=== PATIENT | female | born 1955 | race Caucasian/White ===

== ENCOUNTER 2019-09-21 12:49 | Emergency (ER) | payer MEDICARE ==
[~2019-09-21] VITALS: Ht 167.6 cm; Wt 74.8 kg
[2019-09-21 12:56] VITALS: BP 139/76
[2019-09-21 14:07] LABS: BASOPHILS % (AUTO) 0.5 % (0.0-2.0); EOSINOPHILS # (AUTO) 0.1 K/uL (0-0.4); EOSINOPHILS % (AUTO) 1.1 % (0.0-4.0); HEMATOCRIT 33.5 % (36-48); HEMOGLOBIN 10.8 g/dL (12.0-16.0); LYMPHOCYTES # (AUTO) 1.5 K/uL (2.5-16.5); LYMPHOCYTES % (AUTO) 25.6 % (20.5-51.1); MEAN CORPUSCULAR HEMOGLOBIN 28 pg (27-31); MEAN CORPUSCULAR HGB CONC 32 g/dL (33-37); MEAN CORPUSCULAR VOLUME 86.4 fL (80-94); MONOCYTES # (AUTO) 0.4 K/uL (0.8-1.0); MONOCYTES % (AUTO) 7.8 % (1.7-9.3); NEUTROPHILS # (AUTO) 3.7 K/uL (1.8-7.7); PLATELET COUNT (AUTO) 181 K/uL (140-450); RED BLOOD CELL COUNT(AUTO) 3.88 MIL/uL (4.20-5.40); WHITE BLOOD COUNT (AUTO) 5.7 K/uL (4.8-10.8)
[2019-09-21 14:19] LABS: ALBUMIN 2.9 g/dL (3.4-5.0); ANION GAP 12.5 (8-16); CARBON DIOXIDE 24.5 mmol/L (21-32); TOTAL BILIRUBIN 0.8 mg/dL (0.0-1.0)
[2019-09-21 14:31] LABS: CREATININE 1.1 mg/dL (0.6-1.3)
[2019-09-21 15:59] LABS: APPEARANCE,URINE CLEAR (CLEAR); BILIRUBIN,URINE NEGATIVE (NEGATIVE); BLOOD, URINE NEGATIVE (NEGATIVE); COLOR,URINE OTHER (YELLOW); LEUKOCYTE ESTERASE ,URINE NEGATIVE (NEGATIVE); NITRITE, URINE NEGATIVE (NEGATIVE); UGLUCOSE NEGATIVE (NEGATIVE)
[2019-09-21 16:34] VITALS: BP 131/78
== END 2019-09-21 16:35 | disposition home or self-care (01) ==
LOC: MED 12:49
DX: M84.344A Stress fracture, right finger(s), initial encounter for fracture (principal); R55 Syncope and collapse; X58.XXXA Exposure to other specified factors, initial encounter; Y93.89 Activity, other specified; Y92.89 Other specified places as the place of occurrence of the external cause; Y99.8 Other external cause status; Z90.49 Acquired absence of other specified parts of digestive tract
CPT/HCPCS: 29130; 36415; 73140; 80053; 81003; 85025; 93005; 99284; Q0092; 99283

== ENCOUNTER 2020-04-11 10:52 | Emergency (ER) | payer MEDICARE, MEDICAID ==
[~2020-04-11] VITALS: Ht 167.6 cm; Wt 68.0 kg
--- NOTE | 2020-04-11 10:52 | NUR ---
PT BIBA BLS BY CARE AND PLACED IN BED 9. COVID PRECAUTIONS. PT TESTED POSITIVE 2 WEEKS AGO. PLACED IN ISOLATION FOR PRECAUTIONS.
[2020-04-11 11:00] VITALS: BP 118/62
--- NOTE | 2020-04-11 11:00 | NUR ---
64 Y/O F C/C ANXIETY, BIBA FROM [facility]. PER PT HAD ARGUMENT WITH AND MADE HER HAVE A PANIC ATTACK. PT PRESENTS IN NO RESPIRATORY DISTRESS, EUPNIC, VSS, AFEBRILE. NO COVID SYMPTOMS REPORTED, DENIES COUGH/SOB/FEVERS. BS IN FIELD 135. NKA. HX ASTHMA,ANXIETY. RX PROZAC. NO NVD. SIDE RAIL X2
--- NOTE | 2020-04-11 11:54 | NUR ---
DR OWEN AT BEDSIDE EXAMINING PT
--- NOTE | 2020-04-11 13:04 | NUR ---
[facility] [phone]
--- NOTE | 2020-04-11 13:04 | NUR ---
PT RESTING IN BED, SIDE RAIL X1
[2020-04-11 13:22] VITALS: BP 120/60
--- NOTE | 2020-04-11 13:23 | NUR ---
Patient discharged with v/s stable. Written and verbal after care instructions given and explained. Patient verbalized understanding. Ambulatory with steady gait. All questions addressed prior to discharge. Advised to follow up with PMD.
== END 2020-04-11 13:23 | disposition home or self-care (01) ==
LOC: MED 10:52
DX: F41.9 Anxiety disorder, unspecified (principal); F41.0 Panic disorder [episodic paroxysmal anxiety]; J45.909 Unspecified asthma, uncomplicated
CPT/HCPCS: 93005; 99283

== ENCOUNTER 2023-06-23 11:06 | Emergency (ER) | payer MEDICARE, MEDICAID ==
[~2023-06-23] VITALS: Ht 167.6 cm; Wt 63.0 kg
[2023-06-23 11:13] VITALS: BP 180/80; PULSE 75; RESP 16; TEMP 98.8; O2SAT 98
[2023-06-23 13:30] VITALS: BP 139/80; PULSE 75; RESP 16; TEMP 98; O2SAT 98
== END 2023-06-23 13:30 | disposition home or self-care (01) ==
LOC: MED 11:06
DX: S52.501A Unspecified fracture of the lower end of right radius, initial encounter for closed fracture (principal); R03.0 Elevated blood-pressure reading, without diagnosis of hypertension; W01.0XXA Fall on same level from slipping, tripping and stumbling without subsequent striking against object, initial encounter; Y93.01 Activity, walking, marching and hiking; Y92.89 Other specified places as the place of occurrence of the external cause; Y99.8 Other external cause status
CPT/HCPCS: 73110; 99283

== ENCOUNTER 2023-07-10 02:01 | Emergency (ER) | payer MEDICARE, MEDICAID ==
[~2023-07-10] VITALS: Ht 152.4 cm; Wt 65.8 kg
[2023-07-10 02:10] VITALS: BP 141/67; PULSE 68; RESP 17; TEMP 97.8; O2SAT 100
[2023-07-10] MEDS ORDERED: KETOROLAC 60 MG/2 ML VIAL IM ONE (02:55)
[2023-07-10] MEDS ORDERED: NAPR-54 PO (03:07)
[2023-07-10 03:25] VITALS: BP 138/72; PULSE 78; RESP 16; TEMP 97.8; O2SAT 100
== END 2023-07-10 03:25 | disposition home or self-care (01) ==
LOC: MED 02:01
DX: M40.202 Unspecified kyphosis, cervical region (principal); J45.909 Unspecified asthma, uncomplicated; Z79.899 Other long term (current) drug therapy
CPT/HCPCS: 96372; 99283; J1885